=== PATIENT | female | born 1960 | race Caucasian/White ===

== ENCOUNTER 2020-09-27 15:09 | Emergency (ER) | payer OTHER ==
[~2020-09-27 15:09] MED LIST: IMDUR ER TAB 3030 MG PO; LOPRESSOR 25 MG25 MG PO
[2020-09-27 16:45] LABS: HEMOGLOBIN 12.7 gm/dl (12.3-15.3); RED BLOOD COUNT 4.48 M/UL (4.00-5.10); WHITE BLOOD COUNT 11.2 K/UL (4.5-11.0)
[2020-09-27] MEDS ORDERED: MEDROL4 MG PO (18:29)
[2020-09-27] MEDS ORDERED: TESSALON PERLE100 MG PO (18:29)
[2020-09-27] MEDS ORDERED: ZITHROMAX500 MG PO (18:29)
== END 2020-09-27 18:53 | disposition home or self-care (01) ==
LOC: ER1 15:09
PROVIDERS: Preventive Medicine Occupational Medicine
DX: U07.1 COVID-19 (principal); E86.0 Dehydration; I10 Essential (primary) hypertension
CPT/HCPCS: 0240U; 36415; 71045; 73562; 80053; 81001; 82550; 82553; 83690; 83874; 83880; 84484; 85025; 85379; 85652; 86140; 87086; 93005; 99285; J7030